=== PATIENT | female | born 1955 | race Caucasian/White ===

== ENCOUNTER → 2024-02-01 | Outpatient (CLI) | payer MEDICARE ==
[2024-02-01 12:41] LABS: BASOPHILS # (AUTO) 0.06 K/uL (0.00-0.20); BASOPHILS % (AUTO) 1.2 % (0.0-5.0); EOSINOPHILS # (AUTO) 0.26 K/uL (0.00-0.70); EOSINOPHILS % (AUTO) 5.2 % (0.0-8.0); HEMATOCRIT 42.3 % (36-48); IMMATURE GRANULOCYTE ABSOLUTE 0.01 K/uL (0-1); LYMPHOCYTES # (AUTO) 0.7 K/uL (1.0-4.8); LYMPHOCYTES % (AUTO) 14.2 % (21.0-51.0); MEAN CORPUSCULAR HEMOGLOBIN 29.9 pg (27.0-33.0); MEAN CORPUSCULAR HGB CONC 32.6 g/dL (32.0-36.0); MEAN CORPUSCULAR VOLUME 91.8 fL (79-99); MONOCYTES # (AUTO) 0.3 K/uL (0.1-1.0); MONOCYTES % (AUTO) 6.2 % (3.0-13.0); NEUTROPHILS # (AUTO) 3.6 K/uL (1.8-7.7); PLATELET COUNT (AUTO) 153 K/uL (130-400); RED BLOOD CELL COUNT(AUTO) 4.61 MIL/uL (4.00-5.50); RED CELL DISTRIBUTION WIDTH 14.2 % (11.0-15.5)
[2024-02-01 12:52] LABS: INR 0.96 (0.85-1.15); PROTHROMBIN TIME 11.4 SEC (9.6-11.6)
[2024-02-01 12:53] LABS: PARTIAL THROMBOPLASTIN TIME 30.8 SEC (26.3-35.5)
[2024-02-01 13:33] LABS: ALBUMIN 3.3 g/dL (3.5-5.0); BILIRUBIN,DIRECT 0.3 mg/dL (0.0-0.3); BILIRUBIN,TOTAL 0.9 mg/dL (0.2-1.0); CREATININE 0.9 mg/dL (0.5-1.0); POTASSIUM 3.8 mmol/L (3.5-5.1); TOTAL PROTEIN, SERUM 8.1 g/dL (6.0-8.3)
[2024-02-01 13:37] LABS: % IRON SATURATION 26.7 % (22-44)
[2024-02-01 13:52] LABS: HIV 1&2 ANTIBODY Non-Reactive (Negative); HIV-1 p24 Antigen Non-Reactive (Negative)
[2024-02-02 00:01] LABS: HEPATITIS B CORE AB TOTAL Non-Reactive (Nonreactive); HEPATITIS B SURFACE ANTIBODY Negative (Reactive); HEPATITIS B SURFACE ANTIGEN Non-Reactive (Nonreactive); HEPATITIS C ANTIBODY Non-Reactive (Nonreactive)
[2024-02-02 12:10] LABS: HEPATITIS A ANTIBODY TOTAL Positive (Negative)
[2024-02-03 10:09] LABS: ALPHA-1-ANTITRYPSIN 150 mg/dL (101-187)
[2024-02-05 02:08] LABS: ALPHA 2 MACROGLOBULINS, QN 280 mg/dL (110-276); FIBROSIS SCORE 0.75 (0.00-0.21); NECROINFLAMMAT ACTIVITY GRADE A0-A1 (.); NECROINFLAMMAT ACTIVITY SCORE 0.22 (0.00-0.17)
== END | disposition home or self-care (01) ==
LOC: LAB 11:21
PROVIDERS: ATTEND Internal Medicine Hepatology
DX: R93.2 Abnormal findings on diagnostic imaging of liver and biliary tract (principal); E55.9 Vitamin D deficiency, unspecified; K76.9 Liver disease, unspecified; K74.60 Unspecified cirrhosis of liver
CPT/HCPCS: 36415; 80053; 82103; 82105; 82172; 82247; 82248; 82728; 82977; 83010; 83540; 83550; 83615; 83883; 84460; 85025; 85610; 85730; 86015; 86038; 86215; 86235; 86381; 86701; 86704; 86706; 86708; 86803; 87340; 87390

== ENCOUNTER → 2024-08-07 | Outpatient (CLI) | payer MEDICARE ==
[~2024-08-07] MED LIST: CALC-866 PO; CETI-89 PO; CYAN10007 IJ; EMPA25TA PO; ESCI-8 PO; LACT10SO75 PO; MAGN500C4 PO; METO-391 PO; PANT40TA54 PO
== END | disposition home or self-care (01) ==
LOC: RAH 11:16
PROVIDERS: ATTEND Internal Medicine Hepatology
DX: R16.1 Splenomegaly, not elsewhere classified (principal); K76.0 Fatty (change of) liver, not elsewhere classified; K74.60 Unspecified cirrhosis of liver; Z90.49 Acquired absence of other specified parts of digestive tract
CPT/HCPCS: 76700

== ENCOUNTER → 2025-06-03 | Outpatient (CLI) | payer OTHER ==
--- NOTE | 2025-06-04 07:04 | HMCIMG ---
EXAMINATION: ULTRASOUND OF THE ABDOMEN WITH COLOR DOPPLER. CLINICAL HISTORY: Unspecified cirrhosis of liver. COMPARISON: Ultrasound of the abdomen dated 08/07/2024. TECHNIQUE: Real-time grayscale ultrasound images of the abdomen. In addition, color Doppler is medically necessary to perform in order to evaluate vascularity and blood flow. FINDINGS: Liver: Bulky in caliber, the right hepatic lobe measures 17.6 cm in the craniocaudal dimension. There is nodular in contour and heterogeneous in echotexture, consistent with cirrhosis. There is no focal hepatic abnormality or intrahepatic biliary ductal dilatation. There is normal spectral Doppler of the main portal vein. Gallbladder: Post cholecystectomy status. Common bile duct is normal in caliber, measuring 0.5 cm. Spleen is bulky in caliber and measures 14.0 x 6.9 x 8.3 cm in craniocaudal, AP and transverse dimensions respectively. 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 Pancreas: Obscured by overlying bowel gas. The kidneys are normal in caliber, the right kidney measures 11.1 x 4.9 x 5.3 cm and the left kidney measures 12.3 x 5.0 x 4.3 cm in craniocaudal, AP, and transverse dimensions respectively. There is normal renal cortical thickness, and cortical echogenicity. There is no renal calculus or hydronephrosis. The proximal, mid, and distal aspects of abdominal aorta are normal in caliber measuring 2.6 cm, 1.6 cm, and 1.4 cm in the AP dimension respectively. The inferior vena cava measures 3.1 cm. IMPRESSION: Cirrhotic liver. No focal hepatic lesions. Post cholecystectomy status. Mild splenomegaly with splenic varices. No significant interval changes. /[place]
== END | disposition home or self-care (01) ==
LOC: RAH 08:48
PROVIDERS: ATTEND Internal Medicine Hepatology
DX: K74.60 Unspecified cirrhosis of liver (principal); R16.1 Splenomegaly, not elsewhere classified; I86.8 Varicose veins of other specified sites; Z98.84 Bariatric surgery status; Z90.49 Acquired absence of other specified parts of digestive tract
CPT/HCPCS: 76700